=== PATIENT | male | born 1975 | race Caucasian/White ===

== ENCOUNTER 2017-11-19 19:57 | Emergency (ER) | payer OTHER, BC ==
[2017-11-19] MEDS ORDERED: IBUPROFEN 600 MG TAB PO ONE (20:37)
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
[2017-11-19 20:55] VITALS: BP 148/87
== END 2017-11-19 21:03 | disposition home or self-care (01) ==
LOC: CED 19:57
DX: S39.92XA Unspecified injury of lower back, initial encounter (principal); S93.491A Sprain of other ligament of right ankle, initial encounter; I10 Essential (primary) hypertension; V49.49XA Driver injured in collision with other motor vehicles in traffic accident, initial encounter; Y92.410 Unspecified street and highway as the place of occurrence of the external cause; Y99.8 Other external cause status; Y93.89 Activity, other specified